=== PATIENT | male | born 1990 | race African-American/Black ===

== ENCOUNTER 2018-05-22 02:51 | Emergency (ER) | payer SELFPAY ==
[~2018-05-22] VITALS: Ht 180.3 cm; Wt 70.9 kg
[2018-05-22] MEDS ORDERED: PROCHLORPERAZINE 5 MG/ML, 2ML ONE (03:15)
[2018-05-22] MEDS ORDERED: PROCHLORPERAZINE 5 MG/ML, 2ML IVPush ONE (03:30)
[2018-05-22 07:14] VITALS: BP 118/50
== END 2018-05-22 08:07 | disposition home or self-care (01) ==
LOC: ED 07:54
DX: F10.121 Alcohol abuse with intoxication delirium (principal); G93.41 Metabolic encephalopathy
CPT/HCPCS: 36415; 70450; 80307; 96374; 99285; J0780